=== PATIENT | male | born 1990 | race Caucasian/White ===

== ENCOUNTER 2019-05-19 23:26 | Emergency (ER) | payer SELFPAY ==
[~2019-05-19] VITALS: Ht 177.8 cm; Wt 115.7 kg
[2019-05-20 00:33] LABS: BASOPHIL % 0.4 % (0-2); PLATELET COUNT 330 x10^3mcL (130-400); RED CELL DISTRIBUTION WIDTH 13.6 % (11.5-14.5)
[2019-05-20 00:41] LABS: CALCIUM 9.4 mg/dL (8.5-10.1); CARBON DIOXIDE 26.9 mmol/L (21-32); CHLORIDE SERUM 107 mmol/L (98-107); CREATININE SERUM 1.2 mg/dL (0.7-1.3); GFR1 > 60 mL/min; GLUCOSE SERUM 111 mg/dL (74-106); SODIUM SERUM 144 mmol/L (136-145)
[2019-05-20 00:46] LABS: ALBUMIN 4.2 g/dL (3.4-5.0); ALKALINE PHOSPHATASE 50 U/L (46-116); ALT/SGPT 33 U/L (16-63); AST/SGOT 18 U/L (15-37); BILIRUBIN TOTAL 0.3 mg/dL (0.20-1.00); TOTAL PROTEIN, SERUM 7.6 g/dL (6.4-8.2)
[2019-05-20 01:07] VITALS: BP 139/81
== END 2019-05-20 01:07 | disposition home or self-care (01) ==
LOC: ED 23:26
PROVIDERS: Emergency Medicine
DX: R07.89 Other chest pain (principal); F41.9 Anxiety disorder, unspecified; F17.210 Nicotine dependence, cigarettes, uncomplicated; E03.9 Hypothyroidism, unspecified
CPT/HCPCS: 36415; 99406; J1885; Q0092

== ENCOUNTER 2019-06-02 23:21 | Emergency (ER) | payer SELFPAY ==
[~2019-06-02] VITALS: Ht 177.8 cm; Wt 115.7 kg
[2019-06-03 00:26] LABS: BASOPHIL % 0.3 % (0-2); PLATELET COUNT 340 x10^3mcL (130-400); RED CELL DISTRIBUTION WIDTH 13.5 % (11.5-14.5)
[2019-06-03 00:36] LABS: CALCIUM 9.1 mg/dL (8.5-10.1); CARBON DIOXIDE 26.4 mmol/L (21-32); CHLORIDE SERUM 107 mmol/L (98-107); GFR1 > 60 mL/min; GLUCOSE SERUM 81 mg/dL (74-106); POTASSIUM SERUM 3.8 mmol/L (3.5-5.1); SODIUM SERUM 143 mmol/L (136-145)
[2019-06-03 00:41] LABS: ALBUMIN 3.6 g/dL (3.4-5.0); ALKALINE PHOSPHATASE 48 U/L (46-116); ALT/SGPT 30 U/L (16-63); AST/SGOT 17 U/L (15-37); BILIRUBIN TOTAL 0.2 mg/dL (0.20-1.00); CHOLESTEROL 175 mg/dL (<200); LIPASE 123 IU/L (73-393)
[2019-06-03 00:42] LABS: CHOLESTEROL/HDL RATIO 6.5; HDL CHOLESTEROL 27 mg/dL (40-60); TRIGLYCERIDES 258 mg/dL (<150)
[2019-06-03 00:52] LABS: T3 TOTAL 1.13 ng/mL
[2019-06-03 01:36] VITALS: BP 141/63
[2019-06-03 01:48] LABS: FREE T4 0.86 ng/dL (0.76-1.46)
[2019-06-03 02:13] LABS: FREE THYROXINE INDEX 2.5 ug/dL (1.4-4.5)
== END 2019-06-03 01:36 | disposition home or self-care (01) ==
LOC: ED 23:21
PROVIDERS: Specialist
DX: R07.89 Other chest pain (principal); M25.512 Pain in left shoulder; E03.9 Hypothyroidism, unspecified
CPT/HCPCS: 36415; 83880; 84439; J1885; Q0092